=== PATIENT | female | born 1965 | race Caucasian/White ===

== ENCOUNTER 2016-12-31 13:42 | Observation (INO) ==
[2016-12-31 14:19] LABS: Basophils # 0.1 K/mcL (0.0-0.2); Basophils % 0.8 %; Eosinophils # 0.2 K/mcL (0.0-0.6); Eosinophils % 1.4 %; Hematocrit 46.6 % (35.3-44.9); Hemoglobin 15.5 g/dL (11.5-15.4); Immature Granulocytes % 0.3 % (0-4); Lymphocytes # 3.2 K/mcL (0.6-4.6); Lymphocytes % 28.6 %; Mean Corpuscular HGB Conc 33.3 g/dL (31.6-35.5); Mean Corpuscular Hemoglobin 30.4 pg (28.0-33.3); Mean Corpuscular Volume 91.4 fL (83.0-100.0); Mean Platelet Volume 9.3 fL (9.4-12.4); Monocytes # 0.5 K/mcL (0.0-1.3); Neutrophils # 7.3 K/mcL (1.6-8.9); Platelet Count 362 K/mcL (140-400); Red Cell Distribution Width 12.4 % (11.5-14.5); Segmented Neutrophils % 64.9 %
[2016-12-31 14:29] LABS: BUN/Creatinine Ratio 13 (6-26); Blood Urea Nitrogen 10 mg/dL (7-20); Calcium 9.4 mg/dL (8.6-10.8); Carbon Dioxide 23 mEq/L (19-29); Chloride 108 mEq/L (98-109); Glucose 98 mg/dL (70-99); Osmolality,Calculated 285 (280-300); Potassium 4.2 mEq/L (3.5-4.5); Sodium 138 mEq/L (136-145); eGFR For African Americans > 60 (> 60); eGFR For Non-African Americans > 60 (> 60)
[2016-12-31] MEDS ORDERED: Aspirin 81 MG TAB.CHEW PO ONE (14:49)
--- NOTE | 2016-12-31 14:52 | Emergency Department Note ---
Disposition Clinical Impression: Chest pain Qualifiers: Chest pain type: unspecified Qualified Code(s): R07.9 - Chest pain, unspecified Disposition: Admitted As Inpatient Condition: Fair Referrals: Felisa Head DO [Primary Care Provider] - Time of Disposition: 14:53 Chest Pain HPI - General Chief Complaint: ED Chest Pain Stated Complaint: chest pain Time Seen by Provider: 12/31/16 14:28 Source: patient Mode of arrival: ambulatory Limitations: no limitations Vital Signs Reviewed: Yes Nursing Notes Reviewed: Yes - History of Present Illness HPI Narrative: 51-year-old female with the complaint of intermittent palpitations for a couple weeks and then intermittent chest pain for the last week. Patient has risk factors including cigarette smoking, diabetes, hypertension, high cholesterol, family history. She takes an aspirin daily. Patient presents for evaluation. Duration: intermittent Onset: during rest Pain Location: substernal, left chest Severity: moderate Severity scale (1-10): 4 Quality: tightness, aching, heaviness Pain Radiation: none Improves with: nothing Worsens with: nothing Context: recent illness Associated symptoms: Reports: nausea, vomiting Treatments prior to arrival chest pain: none - Related Data Home Medications Medication Instructions Recorded Confirmed Amlodipine Besylate 10 mg PO DAILY 05/30/15 03/04/16 Atenolol [Tenormin] 50 mg PO BID 05/30/15 03/04/16 Bupropion HCl [Wellbutrin Xl] 300 mg PO DAILY 05/30/15 03/04/16 Dextroamphetamine/Amphetamine 20 mg PO QAM 05/30/15 03/04/16 [Adderall 20 mg Tablet] Lansoprazole [Prevacid] 30 mg PO DAILY 05/30/15 03/04/16 Metformin HCl [Metformin HCl ER] 1,000 mg PO HS 05/30/15 03/04/16 Dicyclomine [Bentyl] 10 mg PO QID PRN 02/04/16 03/04/16 Estrogen,Con/M-Progest Acet 1 tab PO DAILY 02/04/16 03/04/16 [Prempro 0.45-1.5 mg Tablet] Levothyroxine Sodium [Synthroid] 300 mcg PO DAILY 02/04/16 03/04/16 [place] Carbonate ER [Lithobid] 600 mg PO HS 02/04/16 03/04/16 Sucralfate [Carafate] 1 gm PO BID 02/04/16 03/04/16 Previous Rx's Medication Instructions Recorded Acetaminophen [Tylenol] 1,000 mg PO Q6HR PRN #90 tablet 03/04/16 Azithromycin [Zithromax] 1 applic PO DAILY #6 tablet 05/17/16 Promethazine/Phenyleph/Codeine 5 ml PO HS PRN #60 ml 05/17/16 [Promethazine Vc-Codeine Syrup] Allergies Allergy/AdvReac Type Severity Reaction Status Date / Time morphine Allergy Vomiting Verified 12/31/16 13:50 All systems ED: reviewed and negative except as stated. Constitutional: Denies: fever, chills, weakness, weight change Eyes: Denies: eye pain, eye discharge, vision change ENT ED: Denies: ear pain, throat pain, dental pain, hearing loss, epistaxis, congestion, dysphagia Cardiovascular: Denies: chest pain, palpitations, dyspnea on exertion, edema, syncope Respiratory: Denies: cough, dyspnea, wheezes, hemoptysis, stridor Gastrointestinal: Denies: abdominal pain, nausea, vomiting, diarrhea, constipation, hematemesis, melena, hematochezia Genitourinary: Denies: dysuria, frequency, hematuria, discharge Musculoskeletal: Denies: back pain, neck pain, arthralgia, myalgia Integumentary: Denies: rash, abrasion, lesions Neurological: Denies: headache, weakness, numbness, paresthesias, confusion, abnormal gait, vertigo Psychiatric: Denies: anxiety, depression, suicidal thoughts, homicidal thoughts , auditory hallucinations, visual hallucinations Endocrine: Denies: fatigue Hematological/Lymphatic: Denies: easy bleeding, easy bruising Allergic/Immunologic: Denies: facial swelling, urticaria Chest Pain PMH - Past Medical History Medical history: Reports: diabetes, other Surgical history: Reports: cholecystectomy Psychiatric history: Reports: anxiety, bipolar, depression POST CLOSER history: Reports: no POST CLOSER history, other - Social History Smoking Status: Current every day smoker Alcohol use: Reports: none Drug use: Reports: none Physical Exam - General General appearance: alert, in no apparent distress Course - Reevaluation(s) Reevaluation #1: 51-year-old with multiple risk factors who comes in complaining of chest pain is consistent with cardiac etiology. Workup here shows an EKG with nonspecific changes, a normal troponin, normal chest x-ray. Patient will be admitted for further evaluation and treatment. Time: 14:53 Vital Signs Temperature 98.3 F 12/31/16 13:47 Pulse Rate 104 12/31/16 13:47 Respiratory Rate 16 12/31/16 13:47 Blood Pressure 159/101 12/31/16 13:47 O2 Sat by Pulse Oximetry 99 12/31/16 13:47 Temperature 98.3 F 12/31/16 13:47 Pulse Rate 104 12/31/16 13:47 Respiratory Rate 16 12/31/16 13:47 Blood Pressure 159/101 12/31/16 13:47 O2 Sat by Pulse Oximetry 99 12/31/16 13:47 Oxygen Delivery Oxygen Delivery Room Air Chest Pain - Lab Data Result diagrams: 12/31/16 14:11 12/31/16 14:11 Lab Results 12/31/16 12/31/16 12/31/16 Range/Units 14:11 14:11 14:11 WBC 11.3 H (4.3-11.1) K/mcL RBC 5.10 H (3.82-4.97) M/mcL Hgb 15.5 H (11.5-15.4) g/dL Hct 46.6 H (35.3-44.9) % MCV 91.4 (83.0-100.0) fL MCH 30.4 (28.0-33.3) pg MCHC 33.3 (31.6-35.5) g/dL RDW 12.4 (11.5-14.5) % Plt Count 362 (140-400) K/mcL MPV 9.3 L (9.4-12.4) fL Immature Gran % 0.3 (0-4) % Seg Neutrophils % 64.9 % Lymphocytes % 28.6 % Monocytes % 4.0 % Eosinophils % 1.4 % Basophils % 0.8 % Neutrophils # 7.3 (1.6-8.9) K/mcL Lymphocytes # 3.2 (0.6-4.6) K/mcL Monocytes # 0.5 (0.0-1.3) K/mcL Eosinophils # 0.2 (0.0-0.6) K/mcL Basophils # 0.1 (0.0-0.2) K/mcL Sodium 138 (136-145) mEq/L Potassium 4.2 (3.5-4.5) mEq/L Chloride 108 (98-109) mEq/L Carbon Dioxide 23 (19-29) mEq/L BUN 10 (7-20) mg/dL Creatinine 0.76 (0.57-1.11) mg/dL Est GFR ( Amer) > 60 (> 60) Est GFR (Non-Af Amer) > 60 (> 60) BUN/Creatinine Ratio 13 (6-26) Glucose 98 (70-99) mg/dL Calculated Osmolality 285 (280-300) Calcium 9.4 (8.6-10.8) mg/dL Troponin I 0.00 (0-0.03) ng/mL - EKG Data EKG attestation: Yes I reviewed and interpreted this EKG. EKG shows normal: sinus rhythm Rate: normal Rhythm: NSR Interpretation: no acute changes Heart Score - Score History: Moderately Suspicious EKG: Non Specific repolarisation Disturbance Age: 45-65 Risk Factors: Equal/Greater than 3 risk factor or history of atherosclerotic disease Troponin: Less than normal limit HEART Score Total: 5
[2016-12-31] MEDS ORDERED: Ondansetron 4 MG/2 ML VIAL IVP PRN (16:56)
[2016-12-31] MEDS ORDERED: Naloxone 0.4 MG/ML INJ IVP PRN (16:56)
[2016-12-31] MEDS ORDERED: Acetaminophen 325 MG TABLET PO PRN (16:56)
[2016-12-31] MEDS ORDERED: Ibuprofen 400 MG TABLET PO PRN (16:56)
[2016-12-31] MEDS ORDERED: Nitroglycerin 0.4 MG TAB.SUBL SL PRN (17:00)
[2016-12-31] MEDS ORDERED: Ipratropium/Albuterol Neb 3 ML IH PRN (17:00)
[2016-12-31] MEDS ORDERED: D5% in Water 1,000 ML IVC PRN (17:03)
[2016-12-31] MEDS ORDERED: Dextrose Gel 15 GM PO PRN ×2 (17:03)
[2016-12-31] MEDS ORDERED: *HR* Dextrose 50 % in Water (Syg) 50 ML SYRINGE IVP PRN (17:03)
--- NOTE | 2016-12-31 17:07 | Internal Med History&Physical ---
Date of Encounter: 12/31/16 Time of Encounter: 17:04 Assessment and Plan (1) Chest pain Current visit: Yes Status: Acute Troponins were negative Monitor troponins, telemetry Check lipid panel, use nitroglycerin as needed, Check echocardiogram and schedule a stress test for the morning Omeprazole for GI prophylaxis and Lovenox for DVT prophylaxis. The patient will be admitted for observation. Full code. Time spent on this admission 40 minutes Qualifiers: Chest pain type: precordial pain Qualified Code(s): R07.2 - Precordial pain (2) Anxiety Current visit: Yes Status: Acute Continue clonazepam and other psych meds (3) Tobacco abuse Current visit: Yes Status: Acute Smoking cessation counseling given for 5 minutes, nicotine patch ordered (4) GERD (gastroesophageal reflux disease) Current visit: Yes Status: Acute Qualifiers: Esophagitis presence: without esophagitis Qualified Code(s): K21.9 - Gastro -esophageal reflux disease without esophagitis (5) Hypertension Current visit: Yes Status: Acute Hydralazine IV as needed Qualifiers: Hypertension type: essential hypertension Qualified Code(s): I10 - Essential (primary) hypertension (6) Diabetes Current visit: Yes Status: Acute Hold metformin, use insulin sliding scale Qualifiers: Diabetes mellitus type: type 2 Diabetes mellitus complication status: without complication Diabetes mellitus 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 Oh is a 51 year old female with a past medical history of diabetes type 2 not insulin-dependent, hypertension, hyperlipidemia, tobacco use who came to the emergency room complaining of 3 weeks of intermittent palpitations and chest pain. The patient mentions of the chest pain got worse earlier today at 10 AM, it is midsternal 3 out of 10 in intensity accompanied by diaphoresis, nausea and headache. At times the pain has radiated to the left shoulder and back. Level cell count is 11.3 heart rate was 104, blood pressure 159/101 patient has been taking aspirin at times and has been very anxious. Chest x- ray is unremarkable, EKG shows flattening and nonspecific changes in the inferior and lateral leads. Currently she is still complaining of chest discomfort, no fevers and no other complaints. Past Med Surg Social Fam HX - Past Medical History Medical history: diabetes ([id number]), fibromyalgia, GERD, hyperlipidemia, hypertension, other (Tobacco use, hypothyroidism, bipolar disorder, anxiety, depression, obstructive sleep apnea using CPAP, left carotid stenosis 60-79%) Psychiatric history: anxiety, bipolar, depression - Past Surgical History Surgical History: cholecystectomy, other (Endometrial ablation) - Social History Smoking Status: Current every day smoker Packs per day: Half to 1 packs per day Smokeless Tobacco Status: No Alcohol use: rarely Drug use: none - Additional Family History Additional family history: Father with myocardial infarction in his 50s, hypertension, diabetes and the skin cancer, mother with hypertension diabetes and cervical cancer Internal Medicine - H&P: Meds Amlodipine Besylate 10 mg PO DAILY 05/30/15 [History] Bupropion HCl [Wellbutrin Xl] 300 mg PO DAILY 05/30/15 [History] Lansoprazole [Prevacid] 30 mg PO DAILY 05/30/15 [History] Metformin HCl [Metformin HCl ER] 1,000 mg PO QPM 05/30/15 [History] Estrogen,Con/M-Progest Acet [Prempro 0.45-1.5 mg Tablet] 1 tab PO DAILY [History] [place] Carbonate ER [Lithobid] 600 mg PO HS 02/04/16 [History] Acetaminophen [Tylenol] 1,000 mg PO Q6HR PRN #90 tablet 03/04/16 [Rx] Levothyroxine Sodium [Synthroid] 200 mcg PO QAM 12/31/16 [History] [place] Carbonate ER [Lithobid] 300 mg PO QAM 12/31/16 [History] OXcarbazepine [Oxcarbazepine] 600 mg PO HS 12/31/16 [History] clonazePAM [Klonopin] 1 mg PO HS 12/31/16 [History] risperiDONE [Risperidone] 1 mg PO HS 12/31/16 [History] 3 Allergy/AdvReac Type Severity Reaction Status Date / Time morphine Allergy Vomiting Verified 12/31/16 13:50 All Systems PM: A 10-system review of systems was performed and is negative for pertinent findings except as documented above in the HPI. Review of systems: Other systems out of the 10 review were negative - Constitutional Vitals: Temp Pulse Resp BP Pulse Ox 98.3 F 83 16 124/95 96 12/31/16 13:47 12/31/16 16:19 12/31/16 16:19 12/31/16 16:19 12/31/16 16:19 General appearance: Present: A&O X 3 - Head Head exam: Present: atraumatic, normocephalic - Eye Eye exam: Present: PERRL, conjuntiva pink, sclera anicteric Pupils: Present: PERRL - Neck Neck exam general surgery: Present: supple, trachea midline. Absent: lymphadenopathy - Respiratory Respiratory exam: Present: CTAB. Absent: accessory muscle use, rales, rhonchi, wheezes - Cardiovascular Cardiovascular exam: Present: RRR, +S1, +S2. Absent: diastolic murmur, gallop, rubs, systolic murmur - GI/Abdominal GI/Abdominal exam: Present: normal bowel sounds, soft, no peritoneal signs. Absent: distended, tenderness - Extremities Exam Extremities exam: Present: warm, radial pulses palpable and symmetrical. Absent : calf tenderness, cyanotic, pedal edema - Neurological Exam Neurological exam: Present: CN II-XII intact, oriented X3, no focal deficits. Absent: pronater drift, facial droop, speech deficit - Skin Skin exam: Present: dry, intact Internal Med - H&P Results - Labs CBC & Chem 7: 12/31/16 14:11 12/31/16 14:11
[2016-12-31] MEDS: Nicotine 21 MG PATCH.TD24 TD SCH (17:58)
[2016-12-31] MEDS: Aspirin Enteric Coated 81 MG Tablet PO SCH (17:58)
[2016-12-31] MEDS ORDERED: risperiDONE 1 MG TABLET PO SCH (21:00)
[2016-12-31] MEDS ORDERED: clonazePAM 1 MG TABLET PO SCH (21:00)
[2016-12-31] MEDS ORDERED: Insulin LISPRO 300 UNITS/3 ML VIAL SQ SCH (21:00)
[2016-12-31] MEDS ORDERED: Lithium Carbonate ER 300 MG TABLET.ER PO SCH (21:00)
[2016-12-31] MEDS ORDERED: OXcarbazepine 150 MG TABLET PO SCH (21:00)
[2017-01-01 01:26] LABS: Chol/HDL Ratio 6.9 (0-4.9)
[2017-01-01] MEDS ORDERED: Regadenoson 0.4 MG/5 ML SYRINGE IVP ONE ×2 (07:37→07:47)
[2017-01-01] MEDS ORDERED: amLODIPine 5 MG TABLET PO SCH (09:00)
[2017-01-01] MEDS ORDERED: BuPROPion XL (24 HR) 150 MG TABLET PO SCH (09:00)
[2017-01-01] MEDS ORDERED: Lithium Carbonate ER 300 MG TABLET.ER PO SCH (09:00)
[2017-01-01] MEDS: Insulin LISPRO 300 UNITS/3 ML VIAL SQ SCH ×2 (09:49→11:56)
[2017-01-01] MEDS: Aspirin Enteric Coated 81 MG Tablet PO SCH (09:51)
[2017-01-01] MEDS: Nicotine 21 MG PATCH.TD24 TD SCH (09:52)
[2017-01-01 11:11] VITALS: BP 107/72
--- NOTE | 2017-01-01 13:06 | Discharge Summary ---
Date of Encounter: 01/01/17 Time of Encounter: 13:03 - Discharge Diagnosis (1) Chest pain Priority: Primary Status: Acute Comments: Likely related to severe anxiety Qualifiers: Chest pain type: precordial pain Qualified Code(s): R07.2 - Precordial pain (2) Anxiety Priority: Secondary Status: Acute (3) Tobacco abuse Priority: Secondary Status: Acute Comments: Smoking cessation counseling (4) GERD (gastroesophageal reflux disease) Priority: Secondary Status: Acute Qualifiers: Esophagitis presence: without esophagitis Qualified Code(s): K21.9 - Gastro -esophageal reflux disease without esophagitis (5) Hypertension Priority: Secondary Status: Acute Qualifiers: Hypertension type: essential hypertension Qualified Code(s): I10 - Essential (primary) hypertension (6) Diabetes Priority: Secondary Status: Acute Qualifiers: Diabetes mellitus type: type 2 Diabetes mellitus complication status: without complication Diabetes mellitus terminologist insulin use: without jail use Qualified Code(s): E11.9 - Type 2 diabetes mellitus without complications - Discharge Medications Home Medications: Amlodipine Besylate 10 mg PO DAILY 05/30/15 [History] Bupropion HCl [Wellbutrin Xl] 300 mg PO DAILY 05/30/15 [History] Lansoprazole [Prevacid] 30 mg PO DAILY 05/30/15 [History] Metformin HCl [Metformin HCl ER] 1,000 mg PO QPM 05/30/15 [History] Estrogen,Con/M-Progest Acet [Prempro 0.45-1.5 mg Tablet] 1 tab PO DAILY [History] [place] Carbonate ER [Lithobid] 600 mg PO HS 02/04/16 [History] Acetaminophen [Tylenol] 1,000 mg PO Q6HR PRN #90 tablet 03/04/16 [Rx] Levothyroxine Sodium [Synthroid] 200 mcg PO QAM 12/31/16 [History] [place] Carbonate ER [Lithobid] 300 mg PO QAM 12/31/16 [History] OXcarbazepine [Oxcarbazepine] 600 mg PO HS 12/31/16 [History] clonazePAM [Klonopin] 1 mg PO HS 12/31/16 [History] risperiDONE [Risperidone] 1 mg PO HS 12/31/16 [History] Allergies/Adverse Reactions: 3 Allergy/AdvReac Type Severity Reaction Status Date / Time morphine Allergy Vomiting Verified 12/31/16 13:50 Procedures/tests Complete & Pending: Procedures Performed prior 72 hours Category Date Time Status NM kevin perf SPECT multi [NM] Routine Exams 12/31/16 17:00 Taken EV echocardiogram Routine Y 01/01/17 17:00 Completed SP pharm nuclear stress Routine Y 01/01/17 07:00 Completed Date of admission: 12/31/16 15:59 Primary care physician: Jocelyne Foley - Patient Status Disposition: Home, Self-Care Condition: Good Overall status at discharge: patient is back to baseline - Discharge Instructions Follow Up With: Felisa Head DO [Primary Care Provider] - Additional Instructions: Follow-up with a primary care physician within the next 7 days. Follow with psychiatry within the next 2 weeks - Diet and Activity Activity: increase activity as tolerated Diet: diabetic diet Hospital course: Ms. Oh is a 51 year old female with a past medical history of diabetes type 2 not insulin-dependent, hypertension, hyperlipidemia, tobacco use who came to the emergency room complaining of 3 weeks of intermittent palpitations and chest pain. The patient mentioned that the chest pain got worse at 10 AM, it was midsternal 3 out of 10 in intensity accompanied by diaphoresis, nausea and headache. At times the pain has radiated to the left shoulder and back. White blood cell count was 11.3 heart rate was 104, blood pressure 159/101 patient has been taking aspirin at times and has been very anxious. Chest x- ray is unremarkable, EKG shows flattening and nonspecific changes in the inferior and lateral leads. C The patient underwent a stress test that did not show any ischemia. The echocardiogram shows an ejection fraction of 60-60% with mild diastolic dysfunction. Patient is stable to be discharged and needs to follow up with psychiatry to control her severe anxiety which is most likely the source of her chest pain. Time spent discussing smoking cessation with patient: 3 to 10 minutes - Time Spent with Patient Total time spent providing and/or coordinating discharge services: Greater than 30 minutes (40 min) - Constitutional Vitals: Temp Pulse Resp BP Pulse Ox 98.2 F 78 17 107/72 95 01/01/17 11:10 01/01/17 11:10 01/01/17 11:10 01/01/17 11:10 01/01/17 11:10 General appearance: Present: A&O X 3 - Head Head exam: Present: atraumatic, normocephalic - Eye Eye exam: Present: PERRL, conjuntiva pink, sclera anicteric Pupils: Present: PERRL - Neck Neck exam general surgery: Present: supple, trachea midline. Absent: lymphadenopathy - Respiratory Respiratory exam: Present: CTAB. Absent: accessory muscle use, rales, rhonchi, wheezes - Cardiovascular Cardiovascular exam: Present: RRR, +S1, +S2. Absent: diastolic murmur, gallop, rubs, systolic murmur - GI/Abdominal GI/Abdominal exam: Present: normal bowel sounds, soft, no peritoneal signs. Absent: distended, tenderness - Extremities Exam Extremities exam: Present: warm, radial pulses palpable and symmetrical. Absent : calf tenderness, cyanotic, pedal edema - Neurological Exam Neurological exam: Present: CN II-XII intact, oriented X3, no focal deficits. Absent: pronater drift, facial droop, speech deficit - Skin Skin exam: Present: dry, intact
--- NOTE | 2017-01-01 18:00 | Electrocardiograph Report ---
[address] [address] Test Date: 2016-12-31 Pat Name: Mikki Oh Department: 103 Room: 3B47 Gender: F [employer] Administrator: AM : 1965 Requested By: Pablo Naylor Order Number: [id number] Reading MD: Renny Richardson MD Measurements Intervals [place] Rate: 107 P: 40 [place]: 136 QRS: 42 QRSD: 93 T: -4 QT: 325 QTc: 388 Interpretive Statements SINUS TACHYCARDIA BASELINE ARTIFACT Electronically Signed On 01-01-2017 17:59:21 EST by Renny Richardson MD
== END 2017-01-01 14:40 | disposition home or self-care (01) ==
LOC: EMEROO 13:42 → 3BNU 13:42 → SUATTDRO 15:59 → 3BNU 17:02
PROVIDERS: ADMIT Internal Medicine; ATTEND Internal Medicine

== ENCOUNTER 2017-07-11 21:35 | Inpatient (IN) ==
[2017-07-11] MEDS ORDERED: *HR* LORazepam 1 MG TABLET PO ONE (21:58)
[2017-07-11] MEDS ORDERED: Ondansetron ODT 4 MG TAB.RAPDIS SL ONE (21:58)
--- NOTE | 2017-07-11 22:00 | Emergency Department Note ---
Disposition Clinical Impression: Nausea, Anxiety Bipolar disorder Qualifiers: Most recent bipolar episode type: most recent episode unspecified type Disposition: Admitted As Inpatient Condition: Good Referrals: NONE,PCP [Primary Care Provider] - Forms: ED Satisfaction Letter General Adult HPI - General Chief complaint: ED Nausea/Vomiting/Diarrhea Stated complaint: Si Time Seen by Provider: 07/11/17 21:42 Source: patient Limitations: no limitations Nursing Notes Reviewed: Yes Vital Signs Reviewed: Yes - History of Present Illness HPI Narrative: 52-year-old female with a past medical history of diabetes, hypertension, anxiety, bipolar, depression. She presents with 2 weeks of increasing anxiety along with nausea, vomiting, diarrhea. She states that when her anxiety gets bad she always develops nausea vomiting diarrhea. She has not had a fever. She is not had abdominal pain. Her vomiting is nonbilious nonbloody. Her diarrhea is watery. She does take lithium and has not had any recent levels checked. She has not had any chest pain or shortness of breath. She states that she talked with her psychiatrist who recommended that she come to the ER due to her anxiety. She denies any suicidal or homicidal ideation. Pain Scale: 0 Consistency: constant Improves with: nothing Worsens with: nothing Associated symptoms: Reports: denies other symptoms Treatments Prior to Arrival: none - Related Data Home Medications Medication Instructions Recorded Confirmed Amlodipine Besylate 10 mg PO DAILY 05/30/15 12/31/16 Bupropion HCl [Wellbutrin Xl] 300 mg PO DAILY 05/30/15 12/31/16 Metformin HCl [Metformin HCl ER] 1,000 mg PO QPM 05/30/15 12/31/16 [place] Carbonate ER [Lithobid] 600 mg PO HS 02/04/16 12/31/16 Levothyroxine Sodium [Synthroid] 200 mcg PO QAM 12/31/16 12/31/16 [place] Carbonate ER [Lithobid] 300 mg PO QAM 12/31/16 12/31/16 clonazePAM [Klonopin] 1 mg PO HS 12/31/16 12/31/16 risperiDONE [Risperidone] 1 mg PO HS 12/31/16 12/31/16 Adderall 10 mg Tablet 01/06/17 Trileptal 01/06/17 Previous Rx's Medication Instructions Recorded PredniSONE [Deltasone] 20 mg PO DAILY #12 tablet 01/06/17 Tizanidine HCl 4 mg PO TID #15 tablet 01/06/17 Tramadol HCl [Ultram] 50 mg PO TID PRN #9 tab 01/06/17 Famotidine [Pepcid] 20 mg PO BID #60 tablet 06/29/17 clonazePAM [Klonopin] 0.5 mg PO BID 2 Days #4 tablet 06/29/17 Allergies Allergy/AdvReac Type Severity Reaction Status Date / Time morphine Allergy Vomiting Verified 01/06/17 18:36 All systems ED: reviewed and negative except as stated. Constitutional: Denies: fever ENT ED: Denies: throat pain Cardiovascular: Denies: chest pain Respiratory: Denies: cough Gastrointestinal: Reports: nausea, vomiting, diarrhea. Denies: abdominal pain Musculoskeletal: Denies: back pain Integumentary: Denies: rash Endocrine: Reports: fatigue Past Medical History - Past Medical History Medical history: Reports: diabetes, hyperlipidemia, hypertension, thyroid disease Surgical history: Reports: cholecystectomy, other Psychiatric history: Reports: anxiety, bipolar, depression [employer] history: Reports: no [employer] history, other - Social History Smoking Status: Current every day smoker Smokeless Tobacco Status: No Alcohol use: Reports: none Drug use: Reports: none Physical Exam - General Limitations: no limitations General appearance: alert - Head Head exam: atraumatic - Eye Eye exam: Present: normal appearance, PERRL - ENT ENT exam: normal exam, normal oropharynx - Neck Neck exam: Present: normal inspection - Chest Chest inspection: Present: normal inspection - Respiratory Respiratory exam: Present: normal lung sounds bilaterally. Absent: respiratory distress - Cardiovascular Cardiovascular exam: Present: regular rate, normal rhythm - Abdominal Exam Abdominal exam: Present: soft, Non-Tender - Extremities Exam Extremities exam: Present: normal inspection - Neurological Exam Neurological exam: Present: alert, oriented X3 - Psychiatric Psychiatric exam: Present: anxious - Skin Skin exam: Present: warm, dry Course Course Narrative: Lab work is unremarkable aside from a low TSH. However her free T4 is within normal values. In addition vital signs are within normal limits. She does not exhibit any symptoms of thyroid storm. She also does have a known history of her psychiatric disease and is similar to her prior presentations. Vital Signs Temperature 98.5 F 07/11/17 21:43 Pulse Rate 95 07/11/17 21:43 Respiratory Rate 22 07/11/17 21:43 Blood Pressure 148/96 07/11/17 21:43 O2 Sat by Pulse Oximetry 97 07/11/17 21:43 Temperature 98.5 F 07/11/17 21:43 Pulse Rate 98 07/11/17 23:47 Respiratory Rate 18 07/11/17 23:47 Blood Pressure 118/81 07/11/17 23:47 O2 Sat by Pulse Oximetry 97 07/11/17 23:47 Oxygen Delivery Oxygen Delivery Room Air Medical Decision Making - Medical Records Medical records reviewed: Yes I reviewed the patient's medical records. - Lab Data Lab results reviewed: Yes I reviewed the patient's lab results. Result diagrams: 07/11/17 22:16 07/11/17 22:16 Lab Results 07/11/17 07/11/17 07/11/17 Range/Units 02:13 02:13 22:16 WBC 12.1 H (4.3-11.1) K/mcL RBC 4.78 (3.82-4.97) M/mcL Hgb 15.1 (11.5-15.4) g/dL Hct 43.7 (35.3-44.9) % MCV 91.4 (83.0-100.0) fL MCH 31.6 (28.0-33.3) pg MCHC 34.6 (31.6-35.5) g/dL RDW 12.1 (11.5-14.5) % Plt Count 308 (140-400) K/mcL MPV 9.7 (9.4-12.4) fL Immature Gran % 0.2 (0-4) % Seg Neutrophils % 52.7 % Lymphocytes % 40.0 % Monocytes % 4.7 % Eosinophils % 1.7 % Basophils % 0.7 % Neutrophils # 6.4 (1.6-8.9) K/mcL Lymphocytes # 4.8 H (0.6-4.6) K/mcL Monocytes # 0.6 (0.0-1.3) K/mcL Eosinophils # 0.2 (0.0-0.6) K/mcL Basophils # 0.1 (0.0-0.2) K/mcL Sodium (136-145) mEq/L Potassium (3.5-5.1) mEq/L Chloride (98-107) mEq/L Carbon Dioxide (23-29) mEq/L BUN (6-20) mg/dL Creatinine (0.60-1.20) mg/dL Est GFR ( Amer) (> 60) Est GFR (Non-Af Amer) (> 60) BUN/Creatinine Ratio (6-26) Glucose (70-105) mg/dL Calculated Osmolality (280-300) Calcium (8.6-10.3) mg/dL Total Bilirubin (0.3-1.0) mg/dL Direct Bilirubin (0.0-0.2) mg/dL Indirect Bilirubin (0.0-1.2) mg/dL AST (13-39) Units/L ALT (7-52) Units/L Alkaline Phosphatase (34-104) Units/L Serum Total Protein (6.4-8.9) g/dL Albumin (3.5-5.7) g/dL Globulin (2.4-3.5) g/dL Albumin/Globulin Ratio (1.1-2.2) TSH (0.340-5.600) mcIU/mL Free T4 (0.70-2.00) ng/dl Thyroxine (T4) (5.50-11.00) mcg/dL Urine Color Yellow (Yellow) Urine Clarity Clear (Clear) Urine pH 6.0 (5.0-8.0) pH Units Ur Specific [place] 1.023 (1.010-1.025) Urine Protein Negative (Neg-Trace) mg/dL Urine Glucose (UA) Normal (Normal) mg/dL Urine Ketones Negative (Negative) mg/dL Urine Blood Negative (Negative) Urine Nitrite Negative (Negative) Urine Bilirubin Negative (Negative) Urine Urobilinogen Normal (Normal) mg/dL Ur Leukocyte Esterase Negative (Negative) Ur Culture Indicated? NO (NO) Salicylates (15.0-30.0) mg/dL Urine Opiates Screen Negative (Btlosv=823) ng/mL Acetaminophen (10-20) mcg/mL Ur Barbiturates Screen Negative (Revbfk=815) ng/mL Ur Phencyclidine Scrn Negative (Cutoff=25) ng/mL Ur Amphetamines Screen Negative (Bnujhm=8034) ng/mL U Benzodiazepines Scrn Negative (Rofpku=493) ng/mL Dillwyn (0.6-1.2) mEq/L Urine Cocaine Screen Negative (Cutoff= 300) ng/mL U Marijuana (THC) Screen Negative (Cutoff = 50) ng/mL Ethyl Alcohol (Less than 10) mg/dL 07/11/17 07/11/17 Range/Units 22:16 22:16 WBC (4.3-11.1) K/mcL RBC (3.82-4.97) M/mcL Hgb (11.5-15.4) g/dL Hct (35.3-44.9) % MCV (83.0-100.0) fL MCH (28.0-33.3) pg MCHC (31.6-35.5) g/dL RDW (11.5-14.5) % Plt Count (140-400) K/mcL MPV (9.4-12.4) fL Immature Gran % (0-4) % Seg Neutrophils % % Lymphocytes % % Monocytes % % Eosinophils % % Basophils % % Neutrophils # (1.6-8.9) K/mcL Lymphocytes # (0.6-4.6) K/mcL Monocytes # (0.0-1.3) K/mcL Eosinophils # (0.0-0.6) K/mcL Basophils # (0.0-0.2) K/mcL Sodium 140 (136-145) mEq/L Potassium 3.5 (3.5-5.1) mEq/L Chloride 109 H (98-107) mEq/L Carbon Dioxide 23 (23-29) mEq/L BUN 8 (6-20) mg/dL Creatinine 0.69 (0.60-1.20) mg/dL Est GFR ( Amer) > 60 (> 60) Est GFR (Non-Af Amer) > 60 (> 60) BUN/Creatinine Ratio 12 (6-26) Glucose 124 H (70-105) mg/dL Calculated Osmolality 290 (280-300) Calcium 9.7 (8.6-10.3) mg/dL Total Bilirubin 0.3 (0.3-1.0) mg/dL Direct Bilirubin 0.1 (0.0-0.2) mg/dL Indirect Bilirubin 0.2 (0.0-1.2) mg/dL AST 23 (13-39) Units/L ALT 27 (7-52) Units/L Alkaline Phosphatase 87 (34-104) Units/L Serum Total Protein 6.5 (6.4-8.9) g/dL Albumin 4.4 (3.5-5.7) g/dL Globulin 2.1 L (2.4-3.5) g/dL Albumin/Globulin Ratio 2.1 (1.1-2.2) TSH 0.035 L (0.340-5.600) mcIU/mL Free T4 1.44 (0.70-2.00) ng/dl Thyroxine (T4) 10.21 (5.50-11.00) mcg/dL Urine Color (Yellow) Urine Clarity (Clear) Urine pH (5.0-8.0) pH Units Ur Specific [place] (1.010-1.025) Urine Protein (Neg-Trace) mg/dL Urine Glucose (UA) (Normal) mg/dL Urine Ketones (Negative) mg/dL Urine Blood (Negative) Urine Nitrite (Negative) Urine Bilirubin (Negative) Urine Urobilinogen (Normal) mg/dL Ur Leukocyte Esterase (Negative) Ur Culture Indicated? (NO) Salicylates < 2.5 L (15.0-30.0) mg/dL Urine Opiates Screen (Nbntbj=561) ng/mL Acetaminophen < 10 L (10-20) mcg/mL Ur Barbiturates Screen (Tkncgx=895) ng/mL Ur Phencyclidine Scrn (Cutoff=25) ng/mL Ur Amphetamines Screen (Lhctzv=7572) ng/mL U Benzodiazepines Scrn (Arqydw=770) ng/mL [place] 0.3 L (0.6-1.2) mEq/L Urine Cocaine Screen (Cutoff= 300) ng/mL U Marijuana (THC) Screen (Cutoff = 50) ng/mL Ethyl Alcohol < 10 (Less than 10) mg/dL - Radiology Data Radiology results reviewed: Yes I reviewed the patient's radiology results.
[2017-07-11 22:26] LABS: Basophils # 0.1 K/mcL (0.0-0.2); Basophils % 0.7 %; Eosinophils # 0.2 K/mcL (0.0-0.6); Eosinophils % 1.7 %; Hematocrit 43.7 % (35.3-44.9); Hemoglobin 15.1 g/dL (11.5-15.4); Immature Granulocytes % 0.2 % (0-4); Lymphocytes # 4.8 K/mcL (0.6-4.6); Mean Corpuscular HGB Conc 34.6 g/dL (31.6-35.5); Mean Corpuscular Hemoglobin 31.6 pg (28.0-33.3); Mean Corpuscular Volume 91.4 fL (83.0-100.0); Mean Platelet Volume 9.7 fL (9.4-12.4); Monocytes # 0.6 K/mcL (0.0-1.3); Monocytes % 4.7 %; Neutrophils # 6.4 K/mcL (1.6-8.9); Platelet Count 308 K/mcL (140-400); Red Blood Count 4.78 M/mcL (3.82-4.97); Red Cell Distribution Width 12.1 % (11.5-14.5); Segmented Neutrophils % 52.7 %
[2017-07-11 22:41] LABS: Bilirubin,Urine Negative (Negative); Blood,Urine Negative (Negative); Clarity,Urine Clear (Clear); Color,Urine Yellow (Yellow); Glucose,Urine (UA) Normal (Normal); Ketones,Urine Negative (Negative); Leukocyte Esterase,Urine Negative (Negative); Nitrite,Urine Negative (Negative); Protein,Urine Negative (Neg-Trace); Specific Gravity,Urine 1.023 (1.010-1.025); Urobilinogen,Urine Normal (Normal)
--- NOTE | 2017-07-11 22:55 | Emergency Department Note ---
Disposition Clinical Impression: Nausea, Bipolar disorder, Anxiety Disposition: Admitted As Inpatient Condition: Good Referrals: NONE,PCP [Primary Care Provider] - Forms: ED Satisfaction Letter General Adult HPI - General Chief complaint: ED Nausea/Vomiting/Diarrhea Stated complaint: N/V/ANXIOUS Time Seen by Provider: 07/11/17 21:42 Source: patient Limitations: no limitations Nursing Notes Reviewed: Yes Vital Signs Reviewed: Yes - History of Present Illness Pain Scale: 0 Improves with: nothing Worsens with: nothing Associated symptoms: Reports: denies other symptoms Treatments Prior to Arrival: none - Related Data Home Medications Medication Instructions Recorded Confirmed Amlodipine Besylate 10 mg PO DAILY 05/30/15 12/31/16 Bupropion HCl [Wellbutrin Xl] 300 mg PO DAILY 05/30/15 12/31/16 Metformin HCl [Metformin HCl ER] 1,000 mg PO QPM 05/30/15 12/31/16 Nutrioso Carbonate ER [Lithobid] 600 mg PO HS 02/04/16 12/31/16 Levothyroxine Sodium [Synthroid] 200 mcg PO QAM 12/31/16 12/31/16 Nutri[place] Carbonate ER [Lithobid] 300 mg PO QAM 12/31/16 12/31/16 clonazePAM [Klonopin] 1 mg PO HS 12/31/16 12/31/16 risperiDONE [Risperidone] 1 mg PO HS 12/31/16 12/31/16 Adderall 10 mg Tablet 01/06/17 Trileptal 01/06/17 Previous Rx's Medication Instructions Recorded PredniSONE [Deltasone] 20 mg PO DAILY #12 tablet 01/06/17 Tizanidine HCl 4 mg PO TID #15 tablet 01/06/17 Tramadol HCl [Ultram] 50 mg PO TID PRN #9 tab 01/06/17 Famotidine [Pepcid] 20 mg PO BID #60 tablet 06/29/17 clonazePAM [Klonopin] 0.5 mg PO BID 2 Days #4 tablet 06/29/17 Allergies Allergy/AdvReac Type Severity Reaction Status Date / Time morphine Allergy Vomiting Verified 01/06/17 18:36 Constitutional: Denies: fever ENT ED: Denies: throat pain Cardiovascular: Denies: chest pain Respiratory: Denies: cough Gastrointestinal: Reports: nausea, vomiting, diarrhea. Denies: abdominal pain Musculoskeletal: Denies: back pain Integumentary: Denies: rash Endocrine: Reports: fatigue Past Medical History - Past Medical History Medical history: Reports: diabetes, hyperlipidemia, hypertension, thyroid disease Surgical history: Reports: cholecystectomy, other Psychiatric history: Reports: anxiety, bipolar, depression [employer] history: Reports: no [employer] history, other - Social History Smoking Status: Current every day smoker Smokeless Tobacco Status: No Alcohol use: Reports: none Drug use: Reports: none Physical Exam - General Limitations: no limitations General appearance: alert Course Vital Signs Temperature 98.5 F 07/11/17 21:43 Pulse Rate 95 07/11/17 21:43 Respiratory Rate 22 07/11/17 21:43 Blood Pressure 148/96 07/11/17 21:43 O2 Sat by Pulse Oximetry 97 07/11/17 21:43 Temperature 98.5 F 07/11/17 21:43 Pulse Rate 98 07/11/17 23:47 Respiratory Rate 18 07/11/17 23:47 Blood Pressure 118/81 07/11/17 23:47 O2 Sat by Pulse Oximetry 97 07/11/17 23:47 Oxygen Delivery Oxygen Delivery Room Air Medical Decision Making - Lab Data Result diagrams: 07/11/17 22:16 07/11/17 22:16 Lab Results 07/11/17 07/11/17 07/11/17 Range/Units 02:13 02:13 22:16 WBC 12.1 H (4.3-11.1) K/mcL RBC 4.78 (3.82-4.97) M/mcL Hgb 15.1 (11.5-15.4) g/dL Hct 43.7 (35.3-44.9) % MCV 91.4 (83.0-100.0) fL MCH 31.6 (28.0-33.3) pg MCHC 34.6 (31.6-35.5) g/dL RDW 12.1 (11.5-14.5) % Plt Count 308 (140-400) K/mcL MPV 9.7 (9.4-12.4) fL Immature Gran % 0.2 (0-4) % Seg Neutrophils % 52.7 % Lymphocytes % 40.0 % Monocytes % 4.7 % Eosinophils % 1.7 % Basophils % 0.7 % Neutrophils # 6.4 (1.6-8.9) K/mcL Lymphocytes # 4.8 H (0.6-4.6) K/mcL Monocytes # 0.6 (0.0-1.3) K/mcL Eosinophils # 0.2 (0.0-0.6) K/mcL Basophils # 0.1 (0.0-0.2) K/mcL Sodium (136-145) mEq/L Potassium (3.5-5.1) mEq/L Chloride (98-107) mEq/L Carbon Dioxide (23-29) mEq/L BUN (6-20) mg/dL Creatinine (0.60-1.20) mg/dL Est GFR ( Amer) (> 60) Est GFR (Non-Af Amer) (> 60) BUN/Creatinine Ratio (6-26) Glucose (70-105) mg/dL Calculated Osmolality (280-300) Calcium (8.6-10.3) mg/dL Total Bilirubin (0.3-1.0) mg/dL Direct Bilirubin (0.0-0.2) mg/dL Indirect Bilirubin (0.0-1.2) mg/dL AST (13-39) Units/L ALT (7-52) Units/L Alkaline Phosphatase (34-104) Units/L Serum Total Protein (6.4-8.9) g/dL Albumin (3.5-5.7) g/dL Globulin (2.4-3.5) g/dL Albumin/Globulin Ratio (1.1-2.2) TSH (0.340-5.600) mcIU/mL Free T4 (0.70-2.00) ng/dl Thyroxine (T4) (5.50-11.00) mcg/dL Urine Color Yellow (Yellow) Urine Clarity Clear (Clear) Urine pH 6.0 (5.0-8.0) pH Units Ur Specific [place] 1.023 (1.010-1.025) Urine Protein Negative (Neg-Trace) mg/dL Urine Glucose (UA) Normal (Normal) mg/dL Urine Ketones Negative (Negative) mg/dL Urine Blood Negative (Negative) Urine Nitrite Negative (Negative) Urine Bilirubin Negative (Negative) Urine Urobilinogen Normal (Normal) mg/dL Ur Leukocyte Esterase Negative (Negative) Ur Culture Indicated? NO (NO) Salicylates (15.0-30.0) mg/dL Urine Opiates Screen Negative (Oxzwxl=725) ng/mL Acetaminophen (10-20) mcg/mL Ur Barbiturates Screen Negative (Onuwrc=701) ng/mL Ur Phencyclidine Scrn Negative (Cutoff=25) ng/mL Ur Amphetamines Screen Negative (Yhfwlw=1002) ng/mL U Benzodiazepines Scrn Negative (Soflyx=055) ng/mL Nutrioso (0.6-1.2) mEq/L Urine Cocaine Screen Negative (Cutoff= 300) ng/mL U Marijuana (THC) Screen Negative (Cutoff = 50) ng/mL Ethyl Alcohol (Less than 10) mg/dL 07/11/17 07/11/17 Range/Units 22:16 22:16 WBC (4.3-11.1) K/mcL RBC (3.82-4.97) M/mcL Hgb (11.5-15.4) g/dL Hct (35.3-44.9) % MCV (83.0-100.0) fL MCH (28.0-33.3) pg MCHC (31.6-35.5) g/dL RDW (11.5-14.5) % Plt Count (140-400) K/mcL MPV (9.4-12.4) fL Immature Gran % (0-4) % Seg Neutrophils % % Lymphocytes % % Monocytes % % Eosinophils % % Basophils % % Neutrophils # (1.6-8.9) K/mcL Lymphocytes # (0.6-4.6) K/mcL Monocytes # (0.0-1.3) K/mcL Eosinophils # (0.0-0.6) K/mcL Basophils # (0.0-0.2) K/mcL Sodium 140 (136-145) mEq/L Potassium 3.5 (3.5-5.1) mEq/L Chloride 109 H (98-107) mEq/L Carbon Dioxide 23 (23-29) mEq/L BUN 8 (6-20) mg/dL Creatinine 0.69 (0.60-1.20) mg/dL Est GFR ( Amer) > 60 (> 60) Est GFR (Non-Af Amer) > 60 (> 60) BUN/Creatinine Ratio 12 (6-26) Glucose 124 H (70-105) mg/dL Calculated Osmolality 290 (280-300) Calcium 9.7 (8.6-10.3) mg/dL Total Bilirubin 0.3 (0.3-1.0) mg/dL Direct Bilirubin 0.1 (0.0-0.2) mg/dL Indirect Bilirubin 0.2 (0.0-1.2) mg/dL AST 23 (13-39) Units/L ALT 27 (7-52) Units/L Alkaline Phosphatase 87 (34-104) Units/L Serum Total Protein 6.5 (6.4-8.9) g/dL Albumin 4.4 (3.5-5.7) g/dL Globulin 2.1 L (2.4-3.5) g/dL Albumin/Globulin Ratio 2.1 (1.1-2.2) TSH 0.035 L (0.340-5.600) mcIU/mL Free T4 1.44 (0.70-2.00) ng/dl Thyroxine (T4) 10.21 (5.50-11.00) mcg/dL Urine Color (Yellow) Urine Clarity (Clear) Urine pH (5.0-8.0) pH Units Ur Specific [place] (1.010-1.025) Urine Protein (Neg-Trace) mg/dL Urine Glucose (UA) (Normal) mg/dL Urine Ketones (Negative) mg/dL Urine Blood (Negative) Urine Nitrite (Negative) Urine Bilirubin (Negative) Urine Urobilinogen (Normal) mg/dL Ur Leukocyte Esterase (Negative) Ur Culture Indicated? (NO) Salicylates < 2.5 L (15.0-30.0) mg/dL Urine Opiates Screen (Jihtbi=617) ng/mL Acetaminophen < 10 L (10-20) mcg/mL Ur Barbiturates Screen (Leebyc=225) ng/mL Ur Phencyclidine Scrn (Cutoff=25) ng/mL Ur Amphetamines Screen (Rzpqjp=5858) ng/mL U Benzodiazepines Scrn (Fvefyy=349) ng/mL [place] 0.3 L (0.6-1.2) mEq/L Urine Cocaine Screen (Cutoff= 300) ng/mL U Marijuana (THC) Screen (Cutoff = 50) ng/mL Ethyl Alcohol < 10 (Less than 10) mg/dL Attestation Statement - Attestation Attestation: IRobb MD, personally evaluated this patient and discussed their management with the resident physician. I reviewed the resident's note and agree with the documented findings, medical decision making, and plan of care. 52-year-old female presents to the emergency department with a complaint of nausea and vomiting and diarrhea secondary to anxiety for about 2-3 weeks prior to arrival. She complains of fatigue and no energy. She does have a history of bipolar disorder and is on lithium. She is also on Klonopin at bedtime to help her sleep although she recently increased that to BID and then again increased it to TID and continues to have symptoms. apparently reported that she has had some suicidal thoughts although patient denies this. No homicidal ideation. She denies hallucinations. On examination patient is a well-developed well-nourished female in no acute distress. She is alert and oriented 3. There is no cyanosis or diaphoresis. She does have a flat affect and appears depressed. Breath sounds are clear and equal bilaterally. Heart regular rate and rhythm. Abdomen soft and nontender with normal bowel sounds. Neurological deficits. Labs reviewed. Patient medically cleared and was evaluated in the emergency department by the [address] psychiatry department and is being admitted to the [address] psychiatric unit.
[2017-07-11 23:54] LABS: Acetaminophen < 10 mcg/mL (10-20); Alanine Aminotransferase 27 Units/L (7-52); Albumin 4.4 g/dL (3.5-5.7); Albumin/Globulin Ratio 2.1 (1.1-2.2); Alkaline Phosphatase 87 Units/L (34-104); Aspartate Amino Transferase 23 Units/L (13-39); BUN/Creatinine Ratio 12 (6-26); Bilirubin,Direct 0.1 mg/dL (0.0-0.2); Bilirubin,Indirect 0.2 mg/dL (0.0-1.2); Bilirubin,Total 0.3 mg/dL (0.3-1.0); Blood Urea Nitrogen 8 mg/dL (6-20); Calcium 9.7 mg/dL (8.6-10.3); Carbon Dioxide 23 mEq/L (23-29); Chloride 109 mEq/L (98-107); Ethanol < 10 mg/dL (Less than 10); Globulin 2.1 g/dL (2.4-3.5); Glucose 124 mg/dL (70-105); Osmolality,Calculated 290 (280-300); Potassium 3.5 mEq/L (3.5-5.1); Salicylate < 2.5 mg/dL (15.0-30.0); Sodium 140 mEq/L (136-145); Thyroid Stimulating Hormone 0.035 mcIU/mL (0.340-5.600); Total Protein 6.5 g/dL (6.4-8.9); eGFR For African Americans > 60 (> 60); eGFR For Non-African Americans > 60 (> 60)
[2017-07-11 23:54] LABS: Amphetamine Screen,Urine Negative ng/mL (Cutoff=1000); Barbiturate Screen,Urine Negative ng/mL (Cutoff=200); Benzodiazepines Screen,Urine Negative ng/mL (Cutoff=200); Cannabinoid Screen,Urine Negative ng/mL (Cutoff = 50); Cocaine Screen,Urine Negative ng/mL (Cutoff= 300); Opiate Screen,Urine Negative ng/mL (Cutoff=300); Phencyclidine Screen,Urine Negative ng/mL (Cutoff=25)
[2017-07-12] MEDS ORDERED: Acetaminophen 325 MG TABLET PO PRN (02:12)
[2017-07-12] MEDS ORDERED: *HR* LORazepam 2 MG/ML VIAL IM PRN (02:12)
[2017-07-12] MEDS ORDERED: traZODone 50 MG TABLET PO PRN (02:12)
[2017-07-12] MEDS ORDERED: MOM Conc 10 ML UD.LIQ PO PRN (02:12)
[2017-07-12] MEDS ORDERED: *HR* LORazepam 1 MG TABLET PO PRN (02:12)
[2017-07-12] MEDS ORDERED: Haloperidol Lactate 5 MG/ML VIAL IM PRN (02:12)
[2017-07-12] MEDS ORDERED: Ibuprofen 400 MG TABLET PO PRN (02:24)
[2017-07-12] MEDS: hydrOXYzine pamoate 25 MG CAPSULE PO PRN ×4 (03:48→22:25)
[2017-07-12] MEDS: Nicotine 21 MG PATCH.TD24 TD SCH (09:03)
--- NOTE | 2017-07-12 11:05 | Psychiatry History & Physical ---
Date of Encounter: 07/13/17 Time of Encounter: 11:03 History of Present Illness Patient Stated Chief Complaint: Suicidal ideation Medicare Admission Attestation: For traditional Medicare patients the provided hospital inpatient services are reasonable and necessary and in the case of services not specified as inpatient -only under 42 CFR 419.22 (n), that they are appropriately provided as inpatient services in accordance 42 CFR 412.3. For [facility] the patient may reasonably be expected to be discharged or transferred to a hospital within 96 hours after admission to the Critical [facility]. Admitted From: Emergency Dept History of Present Illness: Ms. Oh is a 52 year old female presented to the emergency department with complaint of nausea and vomiting initially. Patient has been reported patient had a history of mental illness and bipolar disorder and stated that she has passive suicidal thoughts. Patient denied any active suicidal ideation or plans denied any past history of suicide attempts or behavior. Patient is however preoccupied with multiple somatic issues including gastrointestinal symptoms of nausea and vomiting for a long time was told that she has diverticulitis she does not believe she has any specific treatment for that condition her psychotropic medication also has been ineffective for poor defective she is in a combination of Risperdal lithium Klonopin and Adderall she also had some thyroid issues. Overall patient is interested in going back to work after a year and half of a medical leave and she is interested in going back to work but anxious about some of these issues especially the medical issues. Past Med Surg Social Fam HX - Past Medical History Medical history: diabetes, fibromyalgia, hyperlipidemia, hypertension, thyroid disease - Past Psychiatric History Psychiatric history: Reports: bipolar, depression. Denies: previous psychiatric hospitalization - Past Surgical History Surgical History: cholecystectomy, other - Social History Smoking Status: Current every day smoker Smokeless Tobacco Status: No Alcohol use: none Drug use: none - Family History Mother Living Status: Still Living Hx Family Cancer: Yes Hx Family Psychosocial Disorders: Yes Medications & Allergies Amlodipine Besylate 10 mg PO DAILY 05/30/15 [History] Metformin HCl [Metformin HCl ER] 1,000 mg PO QPM 05/30/15 [History] [place] Carbonate ER [Lithobid] 600 mg PO HS 02/04/16 [History] Levothyroxine Sodium [Synthroid] 200 mcg PO QAM 12/31/16 [History] [place] Carbonate ER [Lithobid] 300 mg PO QAM 12/31/16 [History] Dextroamphetamine/Amphetamine [Dextroamp-Amphetamin 10 mg Tab] 10 mg PO DAILY [History] Estrogen,Con/M-Progest Acet [Prempro 0.45-1.5 mg Tablet] 1 tab PO DAILY [History] Lansoprazole [Prevacid] 30 mg PO DAILY 07/12/17 [History] clonazePAM [Klonopin] 0.5 mg PO BID 07/12/17 [History] 3 Allergy/AdvReac Type Severity Reaction Status Date / Time morphine Allergy Vomiting Verified 01/06/17 18:36 Review of Systems Psychiatric: Reports: depression, suicidal ideation Exam - HEENT Head exam IM: Present: atraumatic Eye exam IM: Present: EOMI, normal appearance, PERRL ENT exam IM: Present: normal exam - Neurological Neurological exam: Present: CN II-XII intact - Respiratory Respiratory exam IM: Present: CTAB - GI/Abdominal GI/Abdominal exam IM: Present: normal bowel sounds, soft. Absent: tenderness - Extremities Extremities exam IM: Present: full ROM - Skin Skin exam IM: Present: dry, warm - Constitutional Vitals: Temp Pulse Resp BP Pulse Ox 97.3 F L 94 18 133/91 97 07/12/17 09:00 07/12/17 09:00 07/12/17 09:00 07/12/17 09:00 07/11/17 23:47 General appearance: age & developmentally appropriate, well-groomed, well- nourished, average - Musculoskeletal Gait: normal, slow Station: relaxed Strength & Tone: normal for patient - Psychiatric Patient Orientation: Yes Person, Yes Time, Yes Place Level of alertness: Alert, Sedated Behavior: calm, cooperative, withdrawn Psychomotor activity: Slowed Eye Contact: Maintains Eye Contact Mood Description: Depressed Affect description: congruent with mood, constricted Speech Volume: Normal Speech pattern: normal rate, normal rhythm, normal tone, fluent, spontaneous Language & Vocabulary: consistent with education Thought Process: Linear, Goal Oriented Thought Content: No Suicidal ideation, No Homicidal ideation, No Overt delusions , Yes Preoccupation, Yes Obsessive thoughts Perceptual Disturbances: No Auditory hallucinations, No Visual hallucinations Attention Span Ability: Capable of Focused Attention Memory Description: Grossly Intact Patient Reliability: Reliable Historian Fund of knowledge: Yes abstraction ability, Yes average, Yes aware of current events Intelligence Estimate: Average Judgment: Limited Insight: Partial Results - Labs Labs: Laboratory Last Values WBC 12.1 K/mcL (4.3-11.1) H 07/11/17 22:16 RBC 4.78 M/mcL (3.82-4.97) 07/11/17 22:16 Hgb 15.1 g/dL (11.5-15.4) 07/11/17 22:16 Hct 43.7 % (35.3-44.9) 07/11/17 22:16 MCV 91.4 fL (83.0-100.0) 07/11/17 22:16 MCH 31.6 pg (28.0-33.3) 07/11/17 22:16 MCHC 34.6 g/dL (31.6-35.5) 07/11/17 22:16 RDW 12.1 % (11.5-14.5) 07/11/17 22:16 Plt Count 308 K/mcL (140-400) 07/11/17 22:16 MPV 9.7 fL (9.4-12.4) 07/11/17 22:16 Immature Gran % 0.2 % (0-4) 07/11/17 22:16 Seg Neutrophils % 52.7 % 07/11/17 22:16 Lymphocytes % 40.0 % 07/11/17 22:16 Monocytes % 4.7 % 07/11/17 22:16 Eosinophils % 1.7 % 07/11/17 22:16 Basophils % 0.7 % 07/11/17 22:16 Neutrophils # 6.4 K/mcL (1.6-8.9) 07/11/17 22:16 Lymphocytes # 4.8 K/mcL (0.6-4.6) H 07/11/17 22:16 Monocytes # 0.6 K/mcL (0.0-1.3) 07/11/17 22:16 Eosinophils # 0.2 K/mcL (0.0-0.6) 07/11/17 22:16 Basophils # 0.1 K/mcL (0.0-0.2) 07/11/17 22:16 Sodium 140 mEq/L (136-145) 07/11/17 22:16 Potassium 3.5 mEq/L (3.5-5.1) 07/11/17 22:16 Chloride 109 mEq/L (98-107) H 07/11/17 22:16 Carbon Dioxide 23 mEq/L (23-29) 07/11/17 22:16 BUN 8 mg/dL (6-20) 07/11/17 22:16 Creatinine 0.69 mg/dL (0.60-1.20) 07/11/17 22:16 Est GFR ( Amer) > 60 (> 60) 07/11/17 22:16 Est GFR (Non-Af Amer) > 60 (> 60) 07/11/17 22:16 BUN/Creatinine Ratio 12 (6-26) 07/11/17 22:16 Glucose 124 mg/dL (70-105) H 07/11/17 22:16 Calculated Osmolality 290 (280-300) 07/11/17 22:16 Calcium 9.7 mg/dL (8.6-10.3) 07/11/17 22:16 Total Bilirubin 0.3 mg/dL (0.3-1.0) 07/11/17 22:16 Direct Bilirubin 0.1 mg/dL (0.0-0.2) 07/11/17 22:16 Indirect Bilirubin 0.2 mg/dL (0.0-1.2) 07/11/17 22:16 AST 23 Units/L (13-39) 07/11/17 22:16 ALT 27 Units/L (7-52) 07/11/17 22:16 Alkaline Phosphatase 87 Units/L (34-104) 07/11/17 22:16 Serum Total Protein 6.5 g/dL (6.4-8.9) 07/11/17 22:16 Albumin 4.4 g/dL (3.5-5.7) 07/11/17 22:16 Globulin 2.1 g/dL (2.4-3.5) L 07/11/17 22:16 Albumin/Globulin Ratio 2.1 (1.1-2.2) 07/11/17 22:16 TSH 0.035 mcIU/mL (0.340-5.600) L 07/11/17 22:16 Free T4 1.44 ng/dl (0.70-2.00) 07/11/17 22:16 Thyroxine (T4) 10.21 mcg/dL (5.50-11.00) 07/11/17 22:16 Urine Color Yellow (Yellow) 07/11/17 02:13 Urine Clarity Clear (Clear) 07/11/17 02:13 Urine pH 6.0 pH Units (5.0-8.0) 07/11/17 02:13 Ur Specific [place] 1.023 (1.010-1.025) 07/11/17 02:13 Urine Protein Negative mg/dL (Neg-Trace) 07/11/17 02:13 Urine Glucose (UA) Normal mg/dL (Normal) 07/11/17 02:13 Urine Ketones Negative mg/dL (Negative) 07/11/17 02:13 Urine Blood Negative (Negative) 07/11/17 02:13 Urine Nitrite Negative (Negative) 07/11/17 02:13 Urine Bilirubin Negative (Negative) 07/11/17 02:13 Urine Urobilinogen Normal mg/dL (Normal) 07/11/17 02:13 Ur Leukocyte Esterase Negative (Negative) 07/11/17 02:13 Ur Culture Indicated? NO (NO) 07/11/17 02:13 Salicylates < 2.5 mg/dL (15.0-30.0) L 07/11/17 22:16 Urine Opiates Screen Negative ng/mL (Qfhakc=867) 07/11/17 02:13 Acetaminophen < 10 mcg/mL (10-20) L 07/11/17 22:16 Ur Barbiturates Screen Negative ng/mL (Jaugba=973) 07/11/17 02:13 Ur Phencyclidine Scrn Negative ng/mL (Cutoff=25) 07/11/17 02:13 Ur Amphetamines Screen Negative ng/mL (Sqtoqd=1041) 07/11/17 02:13 U Benzodiazepines Scrn Negative ng/mL (Auvuqc=082) 07/11/17 02:13 [place] 0.3 mEq/L (0.6-1.2) L 07/11/17 22:16 Urine Cocaine Screen Negative ng/mL (Cutoff= 300) 07/11/17 02:13 U Marijuana (THC) Screen Negative ng/mL (Cutoff = 50) 07/11/17 02:13 Ethyl Alcohol < 10 mg/dL (Less than 10) 07/11/17 22:16 Assessment and Plan (1) Bipolar disorder Current visit: Yes Status: Acute Plan: Admit inpatient for safety and stabilization, Close observation, Suicide Precautions per unit protocol, Encourage participation in unit milieu, Group Therapy, Monitor sleep, Monitor appetite Risks, benefits, side effects, alternatives discussed w/pt: Yes Patient agreeable to treatment: Yes Qualifiers: Most recent bipolar episode type: most recent episode unspecified type Qualified Code(s): F31.70 - Bipolar disorder, currently in remission, most recent episode unspecified
[2017-07-12] MEDS: Mag Hydrox/Al Hydrox/Simeth 30 ML UDC PO PRN (14:55)
[2017-07-12] MEDS: amLODIPine 5 MG TABLET PO SCH (16:43)
[2017-07-12] MEDS: *HR* Metformin 500 MG TABLET PO SCH (16:43)
[2017-07-12] MEDS: M PROGEST ACET PO SCH (16:56)
[2017-07-12] MEDS: ESTROGEN CON PO SCH (16:56)
[2017-07-12] MEDS: clonazePAM 0.5 MG TABLET PO SCH (22:25)
[2017-07-12] MEDS: Lithium Carbonate ER 300 MG TABLET.ER PO SCH (23:47)
[2017-07-13] MEDS: amLODIPine 5 MG TABLET PO SCH (09:39)
[2017-07-13] MEDS: hydrOXYzine pamoate 25 MG CAPSULE PO PRN ×2 (09:39→21:50)
[2017-07-13] MEDS: Lithium Carbonate ER 300 MG TABLET.ER PO SCH ×2 (09:39→21:28)
[2017-07-13] MEDS: Nicotine 21 MG PATCH.TD24 TD SCH (09:39)
[2017-07-13] MEDS: ESTROGEN CON PO SCH (09:46)
[2017-07-13] MEDS: M PROGEST ACET PO SCH (09:46)
--- NOTE | 2017-07-13 13:37 | Psychiatry Progress Note ---
Date of Encounter: 07/13/17 Time of Encounter: 13:15 Subjective Interval history: Patient seen for follow-up. Case discussed with nursing staff. Patient continued to be preoccupied with her medical issues nausea and vomiting and financial issues and work related issues [place] back to work and feeling helpless. She feel that minor medication changes was helpful and she is less anxious and less somatic,. She denied any suicidal ideation and anxious to be able to go to work and feel good. Review of Systems Psychiatric: Reports: depression, suicidal ideation Results - Vital Signs Vital Signs: Temp Pulse Resp BP Pulse Ox 97.8 F 87 16 144/88 97 07/13/17 09:00 07/13/17 09:00 07/13/17 09:00 07/13/17 09:00 07/11/17 23:47 Assessment and Plan (1) Bipolar disorder Current visit: Yes Status: Acute Plan: Continue hospitalization, Close observation, Suicide Precautions per unit protocol, Encourage participation in unit milieu, Group Therapy, Monitor sleep, Monitor appetite Risks, benefits, side effects, alternatives discussed w/pt: Yes Patient agreeable to treatment: Yes Qualifiers: Most recent bipolar episode type: most recent episode unspecified type Qualified Code(s): F31.70 - Bipolar disorder, currently in remission, most recent episode unspecified Consult Discharge Plan - Plan Referrals: NONE,PCP [Primary Care Provider] - Psychiatry Exam - Constitutional Vitals: Temp Pulse Resp BP Pulse Ox 97.8 F 87 16 144/88 97 07/13/17 09:00 07/13/17 09:00 07/13/17 09:00 07/13/17 09:00 07/11/17 23:47 General appearance: age & developmentally appropriate, well-groomed, well- nourished - Musculoskeletal Gait: normal Station: relaxed Strength & Tone: normal for patient - Psychiatric Patient Orientation: Yes Person, Yes Time, Yes Place Level of alertness: Alert Behavior: calm, cooperative Psychomotor activity: Normal Eye Contact: Maintains Eye Contact Mood Description: Euthymic/stable Affect description: congruent with mood, constricted Speech Volume: Normal Speech pattern: normal rate, normal rhythm, normal tone, fluent, spontaneous Language & Vocabulary: consistent with education Thought Process: Linear, Goal Oriented Thought Content: No Suicidal ideation, No Homicidal ideation, No Overt delusions Perceptual Disturbances: No Auditory hallucinations, No Visual hallucinations Attention Span Ability: Capable of Focused Attention Memory Description: Grossly Intact Patient Reliability: Reliable Historian Fund of knowledge: Yes abstraction ability, Yes aware of current events Intelligence Estimate: Average Judgment: Limited Insight: Partial
[2017-07-13] MEDS: *HR* Metformin 500 MG TABLET PO SCH (17:10)
[2017-07-13] MEDS: clonazePAM 0.5 MG TABLET PO SCH (21:28)
[2017-07-14 08:22] VITALS: BP 130/84
[2017-07-14] MEDS: Lithium Carbonate ER 300 MG TABLET.ER PO SCH (09:37)
[2017-07-14] MEDS: amLODIPine 5 MG TABLET PO SCH (09:38)
[2017-07-14] MEDS: Nicotine 21 MG PATCH.TD24 TD SCH (09:39)
[2017-07-14] MEDS: M PROGEST ACET PO SCH (09:42)
[2017-07-14] MEDS: ESTROGEN CON PO SCH (09:42)
[2017-07-14] MEDS: Mag Hydrox/Al Hydrox/Simeth 30 ML UDC PO PRN (10:16)
--- NOTE | 2017-07-14 13:28 | Discharge Summary ---
Date of Encounter: 07/15/17 Time of Encounter: 13:20 Diagnosis - Discharge Diagnosis (1) Bipolar disorder Status: Acute Qualifiers: Most recent bipolar episode type: most recent episode unspecified type Qualified Code(s): F31.70 - Bipolar disorder, currently in remission, most recent episode unspecified Medications - Discharge Medications Prescriptions: [place] Carbonate ER [Lithobid] 600 mg PO HS #60 tablet.er Amlodipine Besylate 10 mg PO DAILY 05/30/15 [History] Metformin HCl [Metformin HCl ER] 1,000 mg PO QPM 05/30/15 [History] [place] Carbonate ER [Lithobid] 600 mg PO HS 02/04/16 [History] Levothyroxine Sodium [Synthroid] 200 mcg PO QAM 12/31/16 [History] Estrogen,Con/M-Progest Acet [Prempro 0.45-1.5 mg Tablet] 1 tab PO DAILY [History] Lansoprazole [Prevacid] 30 mg PO DAILY 07/12/17 [History] clonazePAM [Klonopin] 0.5 mg PO BID 07/12/17 [History] [place] Carbonate ER [Lithobid] 600 mg PO HS #60 tablet.er 07/14/17 [Rx] hydrOXYzine pamoate [HydrOXYzine Pamoate] 25 mg PO TID PRN capsule 07/14/17 [Rx ] 3 Allergy/AdvReac Type Severity Reaction Status Date / Time morphine Allergy Vomiting Verified 01/06/17 18:36 Provider Date of admission: 07/12/17 01:28 Primary care physician: PCP NONE Discharging clinician: Dashawn Chavez Psychiatry Exam - Constitutional Vitals: Temp Pulse Resp BP Pulse Ox 98.8 F 69 16 130/84 97 07/14/17 08:22 07/14/17 08:22 07/14/17 08:22 07/14/17 08:22 07/11/17 23:47 General appearance: age & developmentally appropriate, well-groomed, well- nourished - Musculoskeletal Gait: normal Station: relaxed Strength & Tone: normal for patient - Psychiatric Patient Orientation: Yes Person, Yes Time, Yes Place Level of alertness: Alert Behavior: calm, cooperative Psychomotor activity: Normal Eye Contact: Maintains Eye Contact Mood Description: Euthymic/stable Affect description: congruent with mood, full range Speech Volume: Normal Speech pattern: normal rate, normal rhythm, normal tone, fluent, spontaneous Language & Vocabulary: consistent with education Thought Process: Linear, Goal Oriented Thought Content: No Suicidal ideation, No Homicidal ideation, No Overt delusions Perceptual Disturbances: No Auditory hallucinations, No Visual hallucinations Attention Span Ability: Capable of Focused Attention Memory Description: Grossly Intact Patient Reliability: Reliable Historian Fund of knowledge: Yes abstraction ability, Yes aware of current events Intelligence Estimate: Average Judgment: Limited Insight: Partial Hospital Course Hospital course: Ms. Oh is a 52 year old female admitted for bipolar extirpation increased depression and passive suicidal thoughts. Initially patient presented emergency room with complaint of nausea and vomiting and gastrointestinal symptoms that are chronic. For details of admission please see H&P. On the unit patient was focused and preoccupied with multiple somatic complaints that seem to be chronic and unresolved she. She denied any suicidal ideation or intention she was very concerned and worried about going back to work after 18 months medical leave, she was stressed out by financial issues. Patient medication from our psychiatrists were reviewed with the patient with recommendation to taper off her Klonopin and not she was the Adderall. Patient participated in groups and activities. She reported improved sleep. Denies suicidal ideation. Reported her nausea has much improved. Patient was educated about her medical condition and psychiatric medication and advised to be more proactive in her treatment. On discharge patient was medically stable not manic or suicidal and 40 aware of her treatment plan and follow-up. Discharge plans were completed by social work. Patient is discharged in stable condition. - Time Spent with Patient Total time spent providing and/or coordinating discharge services: Less than 30 minutes Assessment and Plan - Patient/Caregiver Discharge Instructions Activity: resume usual activities as tolerated Diet: regular diet - Follow up Plan Follow up with: [facility] [Outside] - 07/23/17 3:00 pm (Above appointment is with Dr Bermeo for outpatient mental health. ) [facility] [Partnered Physician] - 07/16/17 1:55 pm (The above appointemnt is with Dr. Head's associate, Dr. Locke. Dr. Head is on maternity leave. This ppointment is for primary healthcare and medication management services.) Functional capacity at discharge: independent ambulation Overall status at discharge: Stable Disposition: Home, Self-Care Quality - Multiple Antipsychotics Patient discharged on 2 or more antipsychotic medications: No Procedures - Procedures Procedures: Medication Management, Crisis Stabilization, Supportive Therapy, Group Therapy, Psychoeducational Therapy
== END 2017-07-14 15:50 | disposition home or self-care (01) | DRG 885 ==
LOC: EMEROO 21:35 → 1ANU 07-12 01:28 → SUATTDRO 07-12 01:28 → 1ANU 07-12 02:17
PROVIDERS: ADMIT Psychiatry & Neurology Psychiatry; ATTEND Psychiatry & Neurology Psychiatry